=== PATIENT | male | born 1960 | race Caucasian/White ===

== ENCOUNTER 2020-02-25 04:46 | Emergency (ER) | payer OTHER ==
[~2020-02-25] VITALS: Ht 180.3 cm; Wt 78.1 kg
--- NOTE | 2020-02-25 05:02 | NUR ---
PT STATES HAVING INTENSE CHEST PAIN THAT BEGAN ABOUT 30 MIN AGO, PT STATES PAIN COMES AND GOES AND IS ON EFGT SIDE OF CHEST/STOMACH. PT STATES HAVINFG COVID BACK IN DECEMBER AND DENIES MED HISTORY. PT PLAXCED ON ALL MONITORS, ERP AT BEDSIDE
--- NOTE | 2020-02-25 05:12 | NUR ---
ATTEMPTINFG IV, PT HAS VERY HARD TO FIND VEINS, WILL HAVE LAB DRAW LABS AND REASSESS NEED FOR IV.
[2020-02-25 05:33] LABS: BASOPHILS % (AUTO) 1 % (0-1); EOSINOPHILS % (AUTO) 3 % (1-7); LYMPHOCYTES % (AUTO) 11 % (22-44); MEAN CORPUSCULAR HEMOGLOBIN 31.5 pg (27.5-34.5); MEAN CORPUSCULAR HGB CONC 33.8 g/dL (33.2-36.2); MEAN PLATELET VOLUME 8.1 fL (7.4-10.4); MONOCYTES % (AUTO) 9 % (2-9); NEUTROPHILS % (AUTO) 76 % (42-75); PLATELET COUNT 201 x10^3/uL (130-400); RED BLOOD COUNT 4.09 x10^6/uL (4.38-5.82); RED CELL DISTRIBUTION WIDTH 13.4 % (9.4-14.8)
[2020-02-25 05:34] LABS: MD NO
[2020-02-25 05:43] LABS: ALANINE AMINOTRANSFERASE 34 U/L (12-78); ALBUMIN 3.4 g/dL (3.4-5.0); ANION GAP 6 mmol/L (5-15); CHLORIDE 109 mmol/L (98-107); CREATININE 1.02 mg/dL (0.7-1.3)
[2020-02-25 05:48] LABS: ALKALINE PHOSPHATASE 76 U/L (45-117); BILIRUBIN,TOTAL 0.3 mg/dL (0.2-1.0); TOTAL PROTEIN 6.9 g/dL (6.4-8.2); TROPONIN I < 0.015 ng/mL (0.000-0.045)
[2020-02-25 06:40] VITALS: BP 111/75
== END 2020-02-25 06:55 | disposition home or self-care (01) ==
LOC: ED 06:08
DX: D64.9 Anemia, unspecified (principal); R07.89 Other chest pain; R55 Syncope and collapse; R42 Dizziness and giddiness
CPT/HCPCS: 36415; 71045; 80053; 80320; 83735; 83880; 84484; 85025; 93005; 99285; G0480